=== PATIENT | female | born 1990 | race Caucasian/White ===

== ENCOUNTER 2022-02-26 16:11 | Emergency (ER) | payer MEDICAID ==
[~2022-02-26] VITALS: Ht 167.6 cm; Wt 95.5 kg
[2022-02-26 17:19] LABS: COVID AG,FIA SOURCE NASAL SWAB
[2022-02-26 17:38] LABS: INFLUENZA TYPE A NEGATIVE FOR TYPE A (NEGATIVE); INFLUENZA TYPE B NEGATIVE FOR TYPE B (NEGATIVE)
[2022-02-26 18:33] VITALS: BP 116/64
== END 2022-02-26 18:34 | disposition home or self-care (01) ==
LOC: EMS 16:11
DX: B34.9 Viral infection, unspecified (principal); Z20.822 Contact with and (suspected) exposure to COVID-19
CPT/HCPCS: 87804; 99283

== ENCOUNTER 2022-08-02 09:34 | Emergency (ER) | payer SELFPAY ==
[~2022-08-02] VITALS: Ht 170.2 cm; Wt 100.0 kg
[2022-08-02] MEDS ORDERED: PROPARACAINE HCL 0.5% 15 ML OPHTHALMIC SOLUTION OU ONE (12:00)
[2022-08-02] MEDS ORDERED: FLUORESCEIN SODIUM 1 MG STRIP OU ONE (12:00)
[2022-08-02] MEDS ORDERED: OFLOXACIN 0.3% 5 ML OPHTHALMIC SOLUTION OS ONE (13:00)
[2022-08-02 13:45] VITALS: BP 124/71
== END 2022-08-02 14:12 | disposition home or self-care (01) ==
LOC: EMS 09:35
DX: T15.02XA Foreign body in cornea, left eye, initial encounter (principal); X58.XXXA Exposure to other specified factors, initial encounter; Y93.89 Activity, other specified; Y92.89 Other specified places as the place of occurrence of the external cause; Y99.8 Other external cause status
CPT/HCPCS: 99283

== ENCOUNTER 2023-01-23 22:13 | Emergency (ER) | payer SELFPAY ==
[~2023-01-23] VITALS: Ht 167.6 cm; Wt 100.0 kg
[2023-01-23 22:36] VITALS: BP 125/72; PULSE 92; RESP 18; TEMP 99.7
[2023-01-23 22:50] LABS: COVID AG,FIA SOURCE NASAL SWAB
[2023-01-23 23:03] LABS: RAPID GROUP A STREP NEGATIVE (NEGATIVE)
[2023-01-23 23:18] LABS: SARS-COV2 (COVID) ANTIGEN,FIA Negative (Negative)
[2023-01-23 23:22] LABS: INFLUENZA TYPE A NEGATIVE FOR TYPE A (NEGATIVE); INFLUENZA TYPE B NEGATIVE FOR TYPE B (NEGATIVE)
[2023-01-24] MEDS ORDERED: AMOX250C4 PO (00:02)
== END 2023-01-24 00:10 | disposition home or self-care (01) ==
LOC: EMS 22:17
DX: H66.92 Otitis media, unspecified, left ear (principal); B34.9 Viral infection, unspecified; Z20.822 Contact with and (suspected) exposure to COVID-19
CPT/HCPCS: 87430; 87804; 99283

== ENCOUNTER 2024-07-26 14:32 | Emergency (ER) | payer MEDICAID ==
[~2024-07-26] VITALS: Ht 170.2 cm; Wt 103.2 kg
[~2024-07-26 14:32] MED LIST: AMOX250C4 PO
[2024-07-26 14:38] VITALS: TEMP 98.6
[2024-07-26 14:44] LABS: COVID AG,FIA SOURCE NASAL SWAB
[2024-07-26 15:01] LABS: BASOPHILS % (AUTO) 0.9 % (0.0-2.0); EOSINOPHILS % (AUTO) 1.9 % (1.0-6.0); HEMATOCRIT 41.8 % (36-46); HEMOGLOBIN 14.1 g/dL (12.0-16.0); LYMPHOCYTES # (AUTO) 2.6 K/uL (1.0-4.8); LYMPHOCYTES % (AUTO) 32.5 % (22.0-44.0); MEAN CORPUSCULAR HEMOGLOBIN 29.9 pg (26.0-34.0); MEAN CORPUSCULAR HGB CONC 33.7 G/dL (31.0-37.0); MEAN CORPUSCULAR VOLUME 89 fL (80-100); MONOCYTES # (AUTO) 0.6 K/uL (0.1-1.0); MONOCYTES % (AUTO) 7.5 % (2.0-9.0); NEUTROPHILS # (AUTO) 4.7 K/uL (1.8-7.7); NEUTROPHILS % (AUTO) 57.2 % (40.0-70.0); PLATELET COUNT (AUTO) 264 K/uL (150-450); RED BLOOD CELL COUNT(AUTO) 4.72 MIL/uL (4.00-5.20); RED CELL DISTRIBUTION WIDTH 12.8 % (11.5-14.5); WHITE BLOOD COUNT (AUTO) 8.2 K/uL (4.5-11.0)
[2024-07-26 15:04] LABS: INFLUENZA TYPE A NEGATIVE FOR TYPE A (NEGATIVE); INFLUENZA TYPE B NEGATIVE FOR TYPE B (NEGATIVE)
[2024-07-26 15:09] LABS: ANION GAP 10 mmol/L (8-16); CALCIUM, TOTAL 9.3 mg/dL (8.8-10.5); CARBON DIOXIDE 27 mmol/L (22-29); CHLORIDE 106 mmol/L (98-107); CREATININE 0.57 mg/dL (0.60-1.30); GLOMERULAR FILTR. RATE CALC > 60 mL/min (>60); GLUCOSE,RANDOM 94 mg/dL (70-110); POTASSIUM 3.6 mmol/L (3.5-5.1); SODIUM SERUM 143 mmol/L (136-145); UREA NITROGEN, BLOOD 10 mg/dL (7-18)
[2024-07-26 15:10] LABS: LIPASE 76 U/L (16-77)
[2024-07-26 15:13] LABS: ALBUMIN 3.7 g/dL (3.4-5.0); BILIRUBIN,DIRECT 0.1 mg/dL (0.00-0.20); BILIRUBIN,TOTAL 0.4 mg/dL (0.1-1.0); TOTAL PROTEIN, SERUM 7.9 g/dL (6.4-8.2)
[2024-07-26 15:19] LABS: SARS-COV2 (COVID) ANTIGEN,FIA Positive (Negative)
[2024-07-26] MEDS ORDERED: IBUP-1492 PO (15:25)
[2024-07-26] MEDS ORDERED: ACET-3385 PO (15:25)
[2024-07-26 15:30] VITALS: BP 125/78; PULSE 69; RESP 16; O2SAT 100
== END 2024-07-26 15:40 | disposition home or self-care (01) ==
LOC: EMS 14:32
DX: U07.1 COVID-19 (principal); A08.4 Viral intestinal infection, unspecified; R50.9 Fever, unspecified
CPT/HCPCS: 80048; 80076; 83690; 84703; 85025; 87804; 99283

== ENCOUNTER 2024-08-01 10:35 | Emergency (ER) | payer MEDICAID ==
[~2024-08-01] VITALS: Ht 167.6 cm; Wt 1.0 kg
[~2024-08-01 10:35] MED LIST changes: +ACET-3385 PO; -AMOX250C4 PO; +IBUP-1492 PO
[2024-08-01 10:44] VITALS: BP 109/66; PULSE 79; RESP 18; TEMP 96.8; O2SAT 100
[2024-08-01 10:55] LABS: COVID AG,FIA SOURCE NASAL SWAB
[2024-08-01 11:19] LABS: SARS-COV2 (COVID) ANTIGEN,FIA Negative (Negative)
== END 2024-08-01 11:45 | disposition home or self-care (01) ==
LOC: EMS 10:40
DX: Z02.89 Encounter for other administrative examinations (principal); Z20.822 Contact with and (suspected) exposure to COVID-19
CPT/HCPCS: 99283

== ENCOUNTER 2025-01-06 12:43 | Emergency (ER) | payer MEDICAID ==
[~2025-01-06] VITALS: Ht 165.1 cm; Wt 90.9 kg
[2025-01-06 13:05] VITALS: BP 115/75; PULSE 80; RESP 16; TEMP 97.9; O2SAT 100
[2025-01-06 13:19] LABS: APPEARANCE,URINE HAZY (CLEAR); GLUCOSE, URINE (UA) NEGATIVE (NEGATIVE); LEUKOCYTE ESTERASE ,URINE LARGE (NEGATIVE); NITRATE,URINE POSITIVE (NEGATIVE); OCCULT BLOOD,URINE NEGATIVE (NEGATIVE); SPECIFIC GRAVITIY, URINE 1.016 (1.003-1.030)
[2025-01-06 13:23] LABS: SQUAMOUS EPITHELIAL CELL,UR Many /LPF (None Seen)
[2025-01-06] MEDS ORDERED: CEPH-558 PO (14:27)
[2025-01-06] MEDS: LIDOCAINE/PF 1% 2 ML VIAL IM ONE (15:09)
[2025-01-06] MEDS: AZITHROMYCIN 500 MG TABLET PO ONE (15:09)
[2025-01-06] MEDS: CefTRIAXone SODIUM 1 GM/VIAL IM ONE (15:09)
== END 2025-01-06 15:20 | disposition home or self-care (01) ==
LOC: EMS 12:43
DX: N39.0 Urinary tract infection, site not specified (principal); R30.0 Dysuria; R31.9 Hematuria, unspecified; Z98.890 Other specified postprocedural states; Z79.899 Other long term (current) drug therapy
CPT/HCPCS: 99283; 81001; 84703; 87086; 96372; J0456; J0696; J3490; J7060

== ENCOUNTER 2025-01-31 16:41 | Emergency (ER) | payer MEDICAID ==
[~2025-01-31] VITALS: Ht 160 cm; Wt 104.5 kg
[~2025-01-31 16:41] MED LIST changes: -ACET-3385 PO; +CEPH-558 PO; -IBUP-1492 PO
[2025-01-31 16:44] VITALS: TEMP 98.4
[2025-01-31 17:06] LABS: PLATELET COUNT (AUTO) 270 K/uL (150-450); RED BLOOD CELL COUNT(AUTO) 4.61 MIL/uL (4.00-5.20); RED CELL DISTRIBUTION WIDTH 13.1 % (11.5-14.5); WHITE BLOOD COUNT (AUTO) 7.2 K/uL (4.5-11.0)
[2025-01-31 17:13] LABS: CALCIUM, TOTAL 8.5 mg/dL (8.8-10.5); CREATININE 0.54 mg/dL (0.60-1.30); GLOMERULAR FILTR. RATE CALC > 60 mL/min (>60); GLUCOSE,RANDOM 88 mg/dL (70-110); SODIUM SERUM 140 mmol/L (136-145); UREA NITROGEN, BLOOD 11 mg/dL (7-18)
[2025-01-31 17:24] LABS: HCG,QUANTITATIVE 1 mIU/mL (0-6)
[2025-01-31 18:18] LABS: APPEARANCE,URINE CLEAR (CLEAR); GLUCOSE, URINE (UA) NEGATIVE (NEGATIVE); LEUKOCYTE ESTERASE ,URINE SMALL (NEGATIVE); NITRATE,URINE NEGATIVE (NEGATIVE); OCCULT BLOOD,URINE NEGATIVE (NEGATIVE); SPECIFIC GRAVITIY, URINE 1.026 (1.003-1.030)
[2025-01-31 18:33] LABS: SQUAMOUS EPITHELIAL CELL,UR Few /LPF (None Seen)
[2025-01-31] MEDS ORDERED: OMEP-148 PO (21:45)
[2025-01-31] MEDS ORDERED: ACET-66 PO (21:45)
[2025-01-31] MEDS ORDERED: ONDA-104 PO (21:45)
[2025-01-31 21:55] VITALS: BP 139/79; PULSE 76; RESP 16; O2SAT 100
== END 2025-01-31 22:06 | disposition home or self-care (01) ==
LOC: EMS 16:42
DX: K52.9 Noninfective gastroenteritis and colitis, unspecified (principal); N89.8 Other specified noninflammatory disorders of vagina; R11.2 Nausea with vomiting, unspecified; Z79.899 Other long term (current) drug therapy
CPT/HCPCS: 80048; 81001; 83690; 84702; 85025; 99283